=== PATIENT | female | born 1995 | race Caucasian/White ===

== ENCOUNTER 2018-02-15 06:24 | Emergency (ER) | payer OTHER, MEDICAID ==
[~2018-02-15] VITALS: Ht 165.1 cm; Wt 68.0 kg
[~2018-02-15 06:24] MED LIST: NOHOMEMEDICATIONS; NORCO 5-325 TA1 EACH PO
[2018-02-15] MEDS ORDERED: ZOFRAN ODT4 MG PO (08:04)
[2018-02-15] MEDS ORDERED: AZITHROMYC100 MG/52 PO (08:04)
[2018-02-15] MEDS ORDERED: HYDROCODON-ACE1 EAC7 PO (08:04)
[2018-02-15 08:29] VITALS: BP 133/85
== END 2018-02-15 08:30 | disposition home or self-care (01) ==
LOC: M.ERS 06:24
DX: J02.0 Streptococcal pharyngitis (principal); F17.210 Nicotine dependence, cigarettes, uncomplicated; Z88.0 Allergy status to penicillin